=== PATIENT | female | born 1950 | race Caucasian/White ===

== ENCOUNTER 2024-01-05 00:27 | Day surgery (SDC) | payer MEDICARE, SELFPAY ==
[2023-12-28 10:25] VITALS: BMI 23.1
--- NOTE | 2023-12-31 10:57 | PC.NURSE ---
Spoke with _PATIENT_ regarding medication ELIQUIS. Pt. verbalizes understanding that the last dose of ELIQUIS is to be taken on 01/01/2024 and the Endoscopist will instruct them when to restart after the procedure.
[2024-01-05 07:24] VITALS: BP 92/54; PULSE 92; RESP 18; TEMP 36.1; O2SAT 98
--- NOTE | 2024-01-05 07:29 | P.PNAN_ITS ---
Anes - Initial Pre Proc Eval Procedure: Operation Date: 01/05/24 08:30 Proposed Procedures p Screening Colonoscopy - Mike Limon MD Date/Time: 01/05/24 07:29 Surgeon: Mike Limon MD Pre Op Diagnosis: neoplasm screening Patient Data Age: 73 Gender: F Height: 1.71 m Weight: 66.3 kg Last Vital Signs Temp 97 F L 01/05/24 07:24 Pulse 92 01/05/24 07:24 Resp 18 01/05/24 07:24 BP 92/54 L 01/05/24 07:24 Pulse Ox 98 01/05/24 07:24 O2 Del Method Room Air 01/05/24 07:24 Allergies Allergy/AdvReac Type Severity Reaction Status Date / Time Penicillins Allergy Intermediate Hives Verified 01/05/24 07:22 Home Medications Medication Instructions Recorded Confirmed Type Bifidobacterium infantis 4 mg 4 mg PO DAILY 12/28/23 12/28/23 History capsule (Align) apixaban 5 mg tablet (Eliquis) 5 mg PO BID 12/28/23 12/28/23 History dronedarone 400 mg tablet (Multaq) 400 mg PO BIDWMEAL 12/28/23 12/28/23 History ergocalciferol (vitamin D2) 1,250 1,250 mcg PO WEEKLY 12/28/23 12/28/23 History mcg (50,000 unit) capsule (Vitamin D2) ipratropium bromide 42 mcg (0.06 1 spray intranasal PRN PRN 12/28/23 12/28/23 History %) nasal spray ALLERGIES levothyroxine 50 mcg tablet 50 mcg PO DAILY 12/28/23 12/28/23 History (Synthroid) paroxetine HCl 20 mg tablet 20 mg PO DAILY PRN Anxiety 12/28/23 12/28/23 History Patient hx anesthesia problems: none Family hx anesthesia problems: none Results Review: All pre-operative results and documents have been reviewed as part of the pre- operative evaluation. [facility] Family History Family History (System 10/26/23 @ 09:05 by Keyanna Cain) Mother Family history of dementia Social History Social History (System 10/26/23 @ 09:05 by Keyanna Cain) Smoking status: Never smoker Alcohol intake: current Substance use: never Substance use type: does not use Living arrangements: with family Spiritual care concerns: No Anes - Eval Final PreProcedure Day of Procedure 01/05/24 07:29 Patient weight: normal Heart: irregular rhythm Lungs: clear to auscultation Airway: Mallampati scale class II Neurological: alert and oriented Last oral intake: >/= 8 hours ASA classification: III Emergent: no Anesthetic plan: proceed Anesthesia type and monitoring: general GIVS and standard monitoring Results Review: All pre-operative results and documents have been reviewed as part of the pre- operative evaluation. Informed Consent: The patient's anesthetic plan and its attendant risks and benefits were discussed with the patient/family/POA. Questions were solicited and answers provided to the satisfaction of the patient/family/POA.
[2024-01-05] MEDS: LACTATED RINGERS 1,000 ML 150 ML IV CONT (07:30)
--- NOTE | 2024-01-05 08:16 | PM.HPGS ---
History of Present Illness History of Present Illness Consent: Risks, benefits, and alternatives have been discussed and questions answered. Patient agrees to proceed with procedure. Chief complaint: neoplasm screening Narrative: Rhett Smith is a 73 year old female here for screening colonoscopy, last one 10 years ago Review of Systems Review of Systems: All systems reviewed & are unremarkable except as noted in HPI and below PMFSH Past Medical History Medical History (Updated 01/05/24 @ 08:16 by Mike Limon MD) Colon cancer screening Family History Family History (System 10/26/23 @ 09:05 by Keyanna Cain) Mother Family history of dementia Social History Social History (System 10/26/23 @ 09:05 by Keyanna Cain) Smoking status: Never smoker Alcohol intake: current Substance use: never Substance use type: does not use Living arrangements: with family Spiritual care concerns: No Meds Home Medications and Allergies Home Medications Medication Instructions Recorded Confirmed Type Bifidobacterium infantis 4 mg 4 mg PO DAILY 12/28/23 12/28/23 History capsule (Align) apixaban 5 mg tablet (Eliquis) 5 mg PO BID 12/28/23 12/28/23 History dronedarone 400 mg tablet (Multaq) 400 mg PO BIDWMEAL 12/28/23 12/28/23 History ergocalciferol (vitamin D2) 1,250 1,250 mcg PO WEEKLY 12/28/23 12/28/23 History mcg (50,000 unit) capsule (Vitamin D2) ipratropium bromide 42 mcg (0.06 1 spray intranasal PRN PRN 12/28/23 12/28/23 History %) nasal spray ALLERGIES levothyroxine 50 mcg tablet 50 mcg PO DAILY 12/28/23 12/28/23 History (Synthroid) paroxetine HCl 20 mg tablet 20 mg PO DAILY PRN Anxiety 12/28/23 12/28/23 History Allergies Allergy/AdvReac Type Severity Reaction Status Date / Time Penicillins Allergy Intermediate Hives Verified 01/05/24 07:22 Vital Signs Vital Signs - 24 hr 01/05/24 07:24 Temperature 97 F L Pulse Rate 92 Respiratory Rate 18 Blood Pressure 92/54 L Pulse Oximetry 98 Oxygen Delivery Room Air Exam Const: General: comfortable and no acute distress HENMT: Face/Nose/Sinus: Normal nares present Eyes: General: appearance normal, both eyes and all related structures Neck: Neck: no JVD Resp: Auscultation: clear to auscultation bilaterally Cardio: Rate: regular rate Rhythm: regular rhythm GI: Inspection: non-distended GI Palp: Yes Soft to palpation Skin: General skin exam: normal color Neuro: General: gait normal Speech: normal speech Extrem: General: normal to inspection Psych: Mental Status: mental status grossly normal Assessment and Plan Assessment and plan (1) Colon cancer screening: Code(s): Z12.11 - Encounter for screening for malignant neoplasm of colon Status: Acute Assessment and Plan: colonoscopy
[2024-01-05 08:34] VITALS: BP 85/45; PULSE 85; RESP 22; O2SAT 98
[2024-01-05 08:44] VITALS: BP 86/50; PULSE 78; RESP 18; O2SAT 99
[2024-01-05 08:54] VITALS: BP 93/54; PULSE 70; RESP 20; O2SAT 100
== END 2024-01-05 08:59 | disposition home or self-care (01) ==
PROVIDERS: PCP Family Medicine; Visit Provider Internal Medicine Gastroenterology
PROC: 0DJD8ZZ Inspection of Lower Intestinal Tract, Via Natural or Artificial Opening Endoscopic (ICD-10-PCS; CPT 45378; principal; 2024-01-05 08:30)
DX: Z12.11 Encounter for screening for malignant neoplasm of colon (principal); D12.3 Benign neoplasm of transverse colon; K63.5 Polyp of colon; K64.8 Other hemorrhoids; Z79.01 Long term (current) use of anticoagulants
CPT/HCPCS: 45385; 88305; J2704; J7120